=== PATIENT | male | born 1995 | race Hispanic/Latino ===

== ENCOUNTER 2020-10-05 22:28 | Emergency (ER) | payer OTHER ==
[~2020-10-05] VITALS: Ht 177.8 cm; Wt 88.5 kg
[2020-10-05 23:06] VITALS: BP 100/51
== END 2020-10-05 23:06 | disposition left against medical advice (07) ==
LOC: FSED 22:42
DX: R41.82 Altered mental status, unspecified (principal); E86.0 Dehydration; F10.10 Alcohol abuse, uncomplicated; F12.10 Cannabis abuse, uncomplicated
CPT/HCPCS: 99282